=== PATIENT | male | born 1960 | race Caucasian/White ===

== ENCOUNTER 2020-03-09 08:19 | Day surgery (SDC) | payer OTHER ==
[2020-03-09] MEDS ORDERED: Propofol 200 MG/20 ML SDV IV ONE (08:20)
[2020-03-09] MEDS ORDERED: Midazolam 1 MG/ML 2 ML SDV IV ONE (08:20)
[2020-03-09] MEDS ORDERED: Lactated Ringers 1,000 ML IV SCH (08:30)
[2020-03-09] MEDS ORDERED: Sodium Chloride 0.9% 10 ML Syringe FLUSH PRN (08:30)
--- NOTE | 2020-03-09 10:54 | PCM.OPNOTE ---
- General Post-Op/Procedure Note Date of Surgery/Procedure: 03/09/20 Operative Procedure(s): colonosocpy Findings: normal exam Pre Op Diagnosis: personal hx of colon polyp (cecal adenoma) Post-Op Diagnosis: normal exam Anesthesia Technique: MAC (s) Primary Surgeon: Juan C Hagan Anesthesia Provider: Indu Mauro Pathology: none Complications: None Condition: Good Free Text/Narrative:: see dictation [id number]
[2020-03-09 11:37] VITALS: BP 125/91; PULSE 74
--- NOTE | 2020-03-09 13:11 | OR ---
DATE OF OPERATION: 03/09/2020 SURGEON: Juan C Hagan MD PROCEDURE PERFORMED: Colonoscopy. PREOPERATIVE DIAGNOSIS: Personal history of colon polyps. POSTOPERATIVE DIAGNOSIS: Normal exam. INDICATIONS FOR PROCEDURE: This is a 59-year-old white male with a personal history of an adenomatous polyp that was removed approximately 5 years ago from his cecum. He presents now for followup colonoscopy. DESCRIPTION OF PROCEDURE: After an excellent IV sedation was administered, a digital rectal exam was performed. No marked abnormality was noted. The flexible colonoscope was inserted and advanced without difficulty to the patient's cecum. The prep was excellent. The following findings were noted: Ascending colon unremarkable. Transverse colon unremarkable. Descending colon unremarkable. Sigmoid and rectum unremarkable. The patient tolerated the procedure well and was taken to Recovery in good condition. RECOMMENDATIONS: Repeat colonoscopy in 10 years. /[id number] /MODL
== END 2020-03-09 11:43 | disposition home or self-care (01) ==
LOC: FB.SDS 08:19
PROVIDERS: ATTEND Surgery
DX: Z12.11 Encounter for screening for malignant neoplasm of colon (principal); E78.2 Mixed hyperlipidemia; Z98.890 Other specified postprocedural states; Z79.82 Long term (current) use of aspirin; Z86.010 Personal history of colon polyps
CPT/HCPCS: 00811; 45378; J2250; J2704; J7120